=== PATIENT | female | born 1990 | race Caucasian/White ===

== ENCOUNTER 2021-01-20 23:14 | Inpatient (IN) | payer MEDICAID, OTHER ==
[2021-01-21] MEDS ORDERED: hydrALAZINE 20 MG/ML VIAL SLOW IVP PRN ×3 (01:03→22:49)
[2021-01-21] MEDS ORDERED: Dextrose 5% in Water 1,000 ML IV SCH (02:30)
[2021-01-21] MEDS ORDERED: Bupivacaine PF 0.5% 30 ML VIAL ONE (06:00)
[2021-01-21] MEDS ORDERED: Bupivacaine 0.25% HCL 30 ML VIAL ONE (06:00)
[2021-01-21] MEDS ORDERED: Ibuprofen 800 MG TAB PO PRN (08:32)
[2021-01-21] MEDS ORDERED: Ondansetron PF 4 MG/2 ML Vial IVP PRN ×3 (08:32→22:49)
[2021-01-21] MEDS ORDERED: Carboprost 250 MCG/ML AMP IM PRN (08:32)
[2021-01-21] MEDS ORDERED: Methylergonovine 0.2 MG/ML VIAL IM PRN (08:32)
[2021-01-21] MEDS ORDERED: Misoprostol 200 MCG TAB PR PRN (08:32)
[2021-01-21] MEDS ORDERED: Promethazine HCl 25 MG/ML VIAL IM PRN ×2 (08:32→16:25)
[2021-01-21] MEDS ORDERED: Lidocaine 1% (PF) 30 ML VIAL SC PRN (08:32)
[2021-01-21] MEDS ORDERED: Acetaminophen 500 MG TAB PO PRN (08:32)
[2021-01-21] MEDS ORDERED: NS w/ Oxytocin 30 units 500 ML IV SCH ×2 (08:45)
[2021-01-21] MEDS ORDERED: NS w/ Oxytocin 30 units 500 ML IVPB SCH (08:45)
[2021-01-21 09:17] VITALS: BMI 26.7
[2021-01-21] MEDS: Lactated Ringer's 1,000 ML IV SCH ×3 (09:30→15:48)
[2021-01-21 13:26] LABS: Hemoglobin 8.7 g/dL (12.0-15.5); Mean Corpuscular HGB CONC 32.6 g/dL (32.0-36.0); Mean Corpuscular Hemoglobin 27.4 pg (27.0-33.0); Mean Platelet Volume 9.3 fl (7.4-10.4); Platelet Count 208 10x3/uL (150-450); RBC Distribution Width 13.2 % (11.5-14.5); Red Blood Cell (RBC) Count 3.18 10x6/uL (3.90-5.03)
[2021-01-21 13:39] LABS: Syphilis Antibody Nonreactive (Nonreactive); Syphilis Antibody Index 0.04 S/CO (<1.00 Non-Reactive)
[2021-01-21 13:41] LABS: Hep B Surf Ag Non-Reactive S/CO (NonReactive)
[2021-01-21 13:55] LABS: HBSAg Index 0.23 S/CO (0-0.99); HIV (1/2) Antibody/Antigen Non-Reactive (NonReactive); HIV 1/2 INDEX 0.09 S/CO (<1.00)
[2021-01-21 14:21] LABS: SARS-CoV-2 NAA Rapid Test Not Detected (NotDetected)
[2021-01-21] MEDS ORDERED: Fentanyl 2 mcg/Bup 0.1% Cadd 100 ML ONE (15:19)
[2021-01-21] MEDS ORDERED: Fentanyl 100 MCG/2 ML VIAL ONE (15:38)
[2021-01-21] MEDS ORDERED: ePHEDrine Sulfate 50 MG/10 ML VIAL SLOW IVP PRN (16:25)
[2021-01-21] MEDS ORDERED: Naloxone HCl 0.4 mg/ml Vial IVP PRN ×2 (16:25)
[2021-01-21] MEDS ORDERED: Hydrocerin (Eucerin) Cream 120 gm Jar TOP PRN (16:25)
[2021-01-21] MEDS ORDERED: diphenhydrAMINE 50 MG/ML VIAL IVP PRN (16:25)
[2021-01-21] MEDS ORDERED: Fentanyl 2 mcg/Bupivacaine 0.1% Cassette 100 ML EPIDURAL SCH (16:30)
[2021-01-21] MEDS ORDERED: Communication Order-Pharmacy FS SCH (16:30)
[2021-01-21] MEDS ORDERED: Lactated Ringer's 1,000 ML IV PRN (18:01)
[2021-01-21] MEDS ORDERED: Milk Of Magnesia 30 ML UDCUP PO PRN (22:49)
[2021-01-21] MEDS ORDERED: Benzocaine-Menthol 82.5 ML CAN TOP PRN (22:49)
[2021-01-21] MEDS ORDERED: Lanolin Ointment 7 GM TUBE TOP PRN (22:49)
[2021-01-21] MEDS ORDERED: Boostrix 0.5 ML (Tdap) VIAL IM ONE (22:49)
[2021-01-21] MEDS ORDERED: Preparation H Ointment 28 GM TUBE PR PRN (22:49)
[2021-01-21] MEDS ORDERED: diphenhydrAMINE 25 MG CAP PO PRN (22:49)
[2021-01-21] MEDS ORDERED: Bisacodyl 10 MG SUPP PR PRN (22:49)
[2021-01-22] MEDS: Ibuprofen 800 MG TAB PO SCH ×4 (05:41→21:47)
[2021-01-22] MEDS: Docusate Calcium (SURFAK) 240 MG CAP PO SCH ×2 (08:48→21:47)
[2021-01-22] MEDS: Prenatal Vitamin 1 TAB PO SCH (08:48)
[2021-01-22] MEDS: Ferrous Sulfate 325 MG TAB PO SCH ×2 (08:48→18:25)
[2021-01-22] MEDS: Acetaminophen 325 MG TAB PO PRN ×2 (08:54→18:25)
[2021-01-23] MEDS: Ibuprofen 800 MG TAB PO SCH (05:16)
[2021-01-23 07:28] VITALS: BP 132/85; TEMP 98.1
[2021-01-23] MEDS: Prenatal Vitamin 1 TAB PO SCH (08:36)
[2021-01-23] MEDS: Docusate Calcium (SURFAK) 240 MG CAP PO SCH (08:36)
[2021-01-23] MEDS: Ferrous Sulfate 325 MG TAB PO SCH (08:36)
== END 2021-01-23 12:30 | disposition home or self-care (01) | DRG 807 ==
LOC: CSHLD/OP 23:14 → CSHLD 01-21 08:57 → CSHPP 01-21 23:17
PROVIDERS: ADMIT Obstetrics & Gynecology; ATTEND Obstetrics & Gynecology
PROC: 10E0XZZ Delivery of Products of Conception, External Approach (ICD-10-PCS; principal; 2021-01-21)
PROC: 0HQ9XZZ Repair Perineum Skin, External Approach (ICD-10-PCS; 2021-01-21)
PROC: 10907ZC Drainage of Amniotic Fluid, Therapeutic from Products of Conception, Via Natural or Artificial Opening (ICD-10-PCS; 2021-01-21)
PROC: 10H07YZ Insertion of Other Device into Products of Conception, Via Natural or Artificial Opening (ICD-10-PCS; 2021-01-21)
PROC: 3E033VJ Introduction of Other Hormone into Peripheral Vein, Percutaneous Approach (ICD-10-PCS; 2021-01-21)
PROC: 3E0234Z Introduction of Serum, Toxoid and Vaccine into Muscle, Percutaneous Approach (ICD-10-PCS; 2021-01-22)
DX: O76 Abnormality in fetal heart rate and rhythm complicating labor and delivery (principal); Z37.0 Single live birth; Z3A.38 38 weeks gestation of pregnancy; Z20.822 Contact with and (suspected) exposure to COVID-19; O26.893 Other specified pregnancy related conditions, third trimester; Z67.41 Type O blood, Rh negative; O70.0 First degree perineal laceration during delivery
CPT/HCPCS: 36415; 51702; 76815; 76819; 85027; 85461; 86780; 86850; 86870; 86900; 86901; 87340; 87389; 90384; 96372; 99285; J2405; J2590; J7120; S0020; U0002